=== PATIENT | female | born 1990 | race African-American/Black ===

== ENCOUNTER → 2017-12-20 | Outpatient (CLI) | payer MEDICAID ==
[~2017-12-20] MED LIST: DIPH2%T PO; PRED20 PO; PREN0.01 PO
== END ==
LOC: HPND 09:18
PROVIDERS: ATTEND Obstetrics & Gynecology
DX: O35.1XX0 Maternal care for (suspected) chromosomal abnormality in fetus, not applicable or unspecified (principal); O35.8XX0 Maternal care for other (suspected) fetal abnormality and damage, not applicable or unspecified
CPT/HCPCS: 76811